=== PATIENT | male | born 1995 | race Hispanic/Latino ===

== ENCOUNTER 2019-07-29 13:30 | Outpatient (CLI) | payer OTHER ==
--- NOTE | 2019-07-29 14:01 | RAD ---
PA AND LATERAL VIEWS OF THE CHEST: 07/29/19 HISTORY: Lymphatic issues. FINDINGS: The cardiomediastinal is normal. The lungs are expanded and clear. The bony thorax is normal. IMPRESSION: Normal exam. POS: [facility]
== END 2019-07-29 13:31 | disposition home or self-care (01) ==
LOC: BICRAD 13:30
PROVIDERS: ATTEND Dermatology
DX: L73.2 Hidradenitis suppurativa (principal)
CPT/HCPCS: 71046